=== PATIENT | male | born 1970 | race Caucasian/White ===

== ENCOUNTER → 2022-11-15 | Outpatient (CLI) | payer SELFPAY ==
[~2022-11-15] MED LIST: IBUP200 PO; SULTRIDS PO
== END | disposition home or self-care (01) ==
LOC: LAB SHORT 09:18 → LAB 09:18 → EDSTATUS 13:23
DX: K92.1 Melena (principal); R10.9 Unspecified abdominal pain
CPT/HCPCS: 83993; 87338